=== PATIENT | female | born 1990 | race Caucasian/White ===

== ENCOUNTER 2021-07-19 17:04 | Outpatient (CLI) | payer OTHER | END 2021-07-19 17:35 | disposition home or self-care (01) | LOC: NST 17:04 | PROVIDERS: ATTEND Obstetrics & Gynecology Maternal & Fetal Medicine | DX: Z34.82 Encounter for supervision of other normal pregnancy, second trimester (principal) ==

== ENCOUNTER 2021-10-24 12:34 | Outpatient (CLI) | payer OTHER | END 2021-10-24 13:32 | disposition home or self-care (01) | LOC: NST 12:34 | PROVIDERS: ATTEND Obstetrics & Gynecology Maternal & Fetal Medicine | DX: Z34.83 Encounter for supervision of other normal pregnancy, third trimester (principal) ==

== ENCOUNTER 2021-10-24 15:59 | Inpatient (IN) | payer OTHER ==
[~2021-10-24] VITALS: Ht 170.2 cm; Wt 72.6 kg
[2021-11-01] MEDS ORDERED: PRENATAL + DHA1 EAC1 PO (02:07)
== END 2021-11-03 14:38 | disposition home or self-care (01) | DRG 788 ==
LOC: OB/GYN 15:59 → LDR 10-31 23:20 → OB/GYN 11-01 01:56
PROVIDERS: ADMIT Obstetrics & Gynecology Maternal & Fetal Medicine; ATTEND Obstetrics & Gynecology Maternal & Fetal Medicine
PROC: 4A1HXCZ Monitoring of Products of Conception, Cardiac Rate, External Approach (ICD-10-PCS; 2021-10-31)
PROC: 10D00Z1 Extraction of Products of Conception, Low, Open Approach (ICD-10-PCS; principal; 2021-11-01 10:30)
DX: O36.8130 Decreased fetal movements, third trimester, not applicable or unspecified (principal); O48.0 Post-term pregnancy; Z3A.41 41 weeks gestation of pregnancy; Z37.0 Single live birth; Z20.822 Contact with and (suspected) exposure to COVID-19

== ENCOUNTER 2021-10-27 12:21 | Outpatient (CLI) | payer OTHER | END 2021-10-27 13:16 | disposition home or self-care (01) | LOC: NST 12:21 | PROVIDERS: ATTEND Obstetrics & Gynecology Maternal & Fetal Medicine | DX: Z34.83 Encounter for supervision of other normal pregnancy, third trimester (principal) ==

== ENCOUNTER 2021-10-31 12:37 | Outpatient (CLI) | payer OTHER ==
[2021-11-01] MEDS ORDERED: PRENATAL + DHA1 EAC1 PO (02:07)
== END 2021-10-31 13:33 | disposition home or self-care (01) ==
LOC: NST 12:37
PROVIDERS: ATTEND Obstetrics & Gynecology Maternal & Fetal Medicine
DX: Z34.83 Encounter for supervision of other normal pregnancy, third trimester (principal)